=== PATIENT | male | born 1985 | race Asian ===

== ENCOUNTER 2018-06-08 21:09 | Observation (INO) | payer OTHER ==
[2018-06-08] MEDS ORDERED: NS 1,000 ML IV ONE ×2 (21:19→22:05)
[2018-06-08] MEDS ORDERED: ONDANSETRON 4 MG/2 ML VIAL IVP ONE (21:19)
--- NOTE | 2018-06-08 21:31 | EDPHY ---
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 No reported fever, chills, anorexia, vomiting, diarrhea, UTI symptoms, testicular pain or swelling. Patient has a mild leukocytosis of 11. Vital signs stable. CT confirms a dilated appendix to 10 mm with no evidence of rupture or abscess. Patient declined IV analgesics and antiemetics. Case discussed with Dr. Rivera. Patient was kept NPO. He will be taken directly to the operating room from the ER. He was stable upon time of transport. Discussed with Dr. Dunlap DIFFERENTIAL DX: Abdominal pain includes but not limited to acute appendicitis, diverticulitis, cholecystitis, pancreatitis, SBO, gastroenteritis, constipation ED PROCEDURES: See lab and/or imaging results below ED COURSE: 9:20 p.m.:. Patient seen assessed by myself. IV and labs ordered. Patient prefers to wait to see what labs are before pursuing imaging. 10:45 p.m.: Discussed with Dr. Vargas, positive appendicitis on CT scan. Results relayed to the patient. IV Rocephin and Flagyl ordered. Dr. Rivera aware and coming to ED to see patient. NPO since 2:00 p.m.. 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 Patient reports pain was worse yesterday and associated with nausea and anorexia. Today he has been able to have several small meals. He has had normal bowel movements although reports a bilious stool today. No associated vomiting or diarrhea. No reported fever or chills. Today he rates his pain as 2/10, yesterday was 6/10. No prior abdominal surgery. No flank pain. No visualized gross hematuria or history of kidney stones. No testicular pain or swelling. No straining or indication of inguinal hernia. No right upper quadrant abdominal pain or epigastric pain. He is otherwise healthy. No prior abdominal surgery PAST MEDICAL HISTORY: None reported See nurse/triage notes for additional history if applicable Pertinent Past Surgical History: None reported Family History: Noncontributory Social History: Otherwise healthy, works as an manager clinical research in [employer] REVIEW OF SYSTEMS: All other systems negative Constitutional: No fever, no chills, positive for appetite change. Cardiovascular: No chest pain, no palpitations. Respiratory: No cough, no shortness of breath. Gastrointestinal: Positive for abdominal pain, no vomiting, diarrhea. Genitourinary: No hematuria, dysuria, flank pain, pelvic pain Musculoskeletal: No back pain, joint swelling, joint pain, myalgias. Skin: No rashes, color change. PHYSICAL EXAM: General Appearance: Alert, oriented, appropriate, cooperative, NAD, well hydrated, non-toxic appearing, tachycardic, afebrile, no hypoxia. HEENT: Oropharynx clear is no erythema or exudates, no tonsillar hypertrophy or asymmetry. Dentition without abnormality.] Respiratory: There are no retractions, lungs are clear to auscultation. Cardiac: Tachycardic, regular rhythm, no murmurs or gallops. Gastrointestinal: Abdomen is soft, tender to right lower quadrant just above the iliac crest. No rebound tenderness, no right flank pain, no palpable inguinal hernia bowel sounds normal, no masses/hernia, no rigidity, guarding or focal peritoneal findings. Neurological: [ Alert and oriented x 3 Skin: Warm, dry, no rashes, no nodules on palpation. MEDICAL DECISION MAKING: Patient was seen independently. Secondary supervising physician at time of evaluation was Dr. Dunlap. Diagnosis: Acute appendicitis. New, requires workup Summary: See Assessment and Plan for summary of ED visit Clinical lab tests: ordered / reviewed. Independent visualization of images, tracing, or specimens: Yes. Decision to obtain medical records or history from someone other than the patient: No Review / Summarize previous medical records: None available Discussed patient with another provider: Dr. Rivera, Dr. Vargas, Dr. Dunlap Patient Progress: Stable at time of transport OR. - History Smoking Status: Never smoked - Objective Vital Signs: Initial Vital Signs Temperature (C) 36.9 C 06/08/18 21:11 Heart Rate 123 H 06/08/18 21:11 Respiratory Rate 18 06/08/18 21:11 Blood Pressure 115/91 H 06/08/18 21:11 O2 Sat (%) 94 06/08/18 21:11 O2 Delivery Mode Room Air Allergies/Adverse Reactions: No Known Allergies Allergy (Unverified 06/08/18 21:16) Home Medications: Medication Instructions Recorded Hydrocodone/APAP 5/325 [[place] 1 tab PO Q4HRS PRN #7 tab 06/09/18 5/325 (*)] Ibuprofen [Motrin (*)] 600 mg PO Q8HRS #30 tab 06/09/18 Laboratory Results: Laboratory Results 06/08/18 21:30 06/08/18 21:30 Medications Given: Discontinued Medications Bupivacaine HCl (Sensorcaine 0.25% Sdv) Confirm Administered Dose 30 ml .ROUTE .STK-MED ONE Stop: 06/08/18 23:25 Last Admin: 06/09/18 00:50 Dose: 25 ml Sodium Chloride (Ns) 1,000 mls @ 0 mls/hr IV EDNOW ONE; Wide Open PRN Reason: Protocol Stop: 06/08/18 21:20 Last Admin: 06/08/18 21:35 Dose: 1,000 mls Sodium Chloride (Ns) 1,000 mls @ 0 mls/hr IV EDNOW ONE; Wide Open PRN Reason: Protocol Stop: 06/08/18 22:06 Last Admin: 06/08/18 22:12 Dose: Not Given Ceftriaxone Sodium/Dextrose (Rocephin 1 Gm (Premix)) 50 mls @ 100 mls/hr IV EDNOW ONE PRN Reason: Protocol Stop: 06/08/18 23:19 Last Admin: 06/08/18 22:50 Dose: 50 mls Metronidazole/Sodium Chloride (Flagyl 500 Mg (Premix)) 100 mls @ 100 mls/hr IV EDNOW ONE PRN Reason: Protocol Stop: 06/08/18 23:49 Last Admin: 06/08/18 23:04 Dose: 100 mls Lactated Ringer's (Lr) 1,000 mls @ 75 mls/hr IV CONT MADHU Stop: 12/06/18 01:29 Last Admin: 06/09/18 01:47 Dose: 1,000 mls Ibuprofen (Motrin) 600 mg PO Q8HRS MADHU Stop: 12/06/18 05:59 Last Admin: 06/09/18 05:13 Dose: 600 mg Midazolam HCl (Versed) 2 mg IVP ONCALL ONE Stop: 06/08/18 23:55 Last Admin: 06/09/18 00:28 Dose: Not Given Ondansetron HCl (Zofran) 4 mg IVP EDNOW ONE Stop: 06/08/18 21:20 Last Admin: 06/08/18 21:35 Dose: Not Given Departure - Departure Disposition: To OP Cath/Surgery Condition: Good
[2018-06-08 21:46] LABS: PLATELET COUNT 212 10^3/uL (150-400)
[2018-06-08] MEDS ORDERED: IOPAMIDOL (ISOVUE-300) 100 ML BTL ONE (22:20)
[2018-06-08] MEDS ORDERED: BUPIVACAINE 0.25% 30 ML SDV ONE (23:24)
--- NOTE | 2018-06-08 23:44 | PDGENHP ---
History and Physical - Chief Complaint abd pain - History of Present Illness 32 y/o male with one day history of abdominal pain localizing to the RLQ associated with anorexia. He was seen in the ED by Ron Reese PA-C and a CT of the abd performed that showed appendicitis. Surgical consult was requested. 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 [place] Review of Systems Review of Systems: Gastrointestinal: Reports: abdominal pain, diarrhea, nausea, other (anorexia) Physical Exam Physical Exam: Temp Pulse Resp BP Pulse Ox 36.9 C 89 16 138/86 H 98 06/08/18 21:11 06/08/18 23:11 06/08/18 23:11 06/08/18 23:11 06/08/18 23:11 Constitutional: uncomfortable Cardiovascular: regular rate and rhythym Respiratory: clear to auscultation Gastrointestinal: tenderness (RLQ with guarding/Negative Rovsing's), guarding Genitourinary: no bladder fullness Psychiatric: interacting appropriately, not anxious Lymph, Heme, Immunologic: no cervical LAD, no supraclavicular LAD Lab Data & Imaging Review 06/08/18 21:30 06/08/18 21:30 WBC 11.58 10^3/uL (3.80-9.50) H 06/08/18 21:30 RBC 5.55 10^6/uL (4.40-6.38) 06/08/18 21:30 Hgb 17.1 g/dL (13.7-17.5) 06/08/18 21:30 Hct 50.9 % (40.0-51.0) 06/08/18 21:30 MCV 91.7 fL (81.5-99.8) 06/08/18 21:30 MCH 30.8 pg (27.9-34.1) 06/08/18 21:30 MCHC 33.6 g/dL (32.4-36.7) 06/08/18 21: RDW 11.9 % (11.5-15.2) 06/08/18 21: Plt Count 212 10^3/uL (150-400) 06/08/18 21: MPV 9.1 fL (8.7-11.7) 06/08/18: Neut % (Auto) 70.4 % (39.3-74.2) 06/08/18 21: Lymph % (Auto) 20.8 % (15.0-45.0) 06/08/18: [place] % (Auto) 7.7 % (4.5-13.0) 06/08/18: Eos % (Auto) 0.5 % (0.6-7.6) L 06/08/18: Baso % (Auto) 0.3 % (0.3-1.7) 06/08/18: Nucleat RBC Rel Count 0.0 % (0.0-0.2) 06/08/18: Absolute Neuts (auto) 8.16 10^3/uL (1.70-6.50) H 06/08/18 21: Absolute Lymphs (auto) 2.41 10^3/uL (1.00-3.00) 06/08/18: Absolute Monos (auto) 0.89 10^3/uL (0.30-0.80) H 06/08/18: Absolute Eos (auto) 0.06 10^3/uL (0.03-0.40) 06/08/18: Absolute Basos (auto) 0.03 10^3/uL (0.02-0.10) 06/08/18: Absolute Nucleated RBC 0.00 10^3/uL (0-0.01) 06/08/18: Immature Gran % 0.3 % (0.0-1.1) 06/08/18: Immature Gran # 0.03 10^3/uL (0.00-0.10) 06/08/18 21: Sodium 136 mEq/L (135-145) 06/08/18 21:30 Potassium 4.1 mEq/L (3.5-5.2) 06/08/18 21:30 Chloride 100 mEq/L (97-110) 06/08/18 21:30 Carbon Dioxide 24 mEq/l (22-31) 06/08/18 21:30 Anion Gap 12 mEq/L (6-14) 06/08/18 21:30 BUN 17 mg/dL (7-23) 06/08/18 21:30 Creatinine 0.9 mg/dL (0.7-1.3) 06/08/18 21:30 Estimated GFR > 60 06/08/18 21:30 Glucose 116 mg/dL (70-100) H 06/08/18 21:30 Calcium 9.7 mg/dL (8.5-10.4) 06/08/18 21:30 Assessment & Plan Assessment: acute appendicitis confirmed by CT Plan: We discussed management options and I recommended appendectomy. We discussed open vs. laparoscopic appendectomy contrasted with antibiotic therapy and the pros and cons of each. He is scheduled for lap appendectomy. We reviewed the risks and expected recovery. Informed consent was obtained.. He has received one gram of Rocephin and 500 mg of Metronidazole in the ED
--- NOTE | 2018-06-08 23:53 | PDANEPAE ---
ANE History of Present Illness acute appendicitis here lap appy ANE Past Medical History - Cardiovascular History Hx Hypertension: No Hx Arrhythmias: No Hx Chest Pain: No Hx Coronary Artery / Peripheral Vascular Disease: No Hx CHF / Valvular Disease: No - Pulmonary History Hx Oxygen in Use at Home: No - Endocrine History Hx Diabetes: No ANE Review of Systems Review of Systems: - Exercise capacity Exercise capacity: >=4 METS ANE Patient History - Allergies Allergies/Adverse Reactions: No Known Allergies Allergy (Unverified 06/08/18 21:16) - Home Medications Home Medications: NK [No Known Home Meds] 06/08/18 [Last Taken Unknown] - NPO status NPO Status: no food or drink >8 hours NPO Since - Liquids (Date): 06/08/18 NPO Since - Liquids (Time): 15:30 NPO Since - Solids (Date): 06/08/18 NPO Since - Solids (Time): 15:00 - Anes Hx Anes Hx: no prior problems - Smoking Hx Smoking Status: Never smoked - Alcohol Use Alcohol Use: Occasionally - Family Anes Hx Family Anes Hx: none ANE Labs/Vital Signs - Labs Result Diagrams: 06/08/18 21:30 06/08/18 21:30 - Vital Signs Blood Pressure: 125/78 Heart Rate: 83 Respiratory Rate: 16 O2 Sat (%): 97 Height: 185.42 cm Weight: 68.039 kg ANE Physical Exam - Airway Neck exam: FROM Mallampati Score: Class 1 Mouth exam: normal dental/mouth exam - Pulmonary Pulmonary: no respiratory distress, clear to auscultation - Cardiovascular Cardiovascular: regular rate and rhythym, no murmur, rub, or gallop - ASA Status ASA Status: I ANE Anesthesia Plan Anesthesia Plan: general endotracheal anesthesia
[2018-06-08] MEDS ORDERED: MIDAZOLAM 2 MG/2 ML VIAL IVP ONE (23:54)
[2018-06-08] MEDS ORDERED: PROPOFOL 200 MG/20 ML VIAL ONE (23:57)
[2018-06-08] MEDS ORDERED: fentaNYL 100 MCG/2 ML INJ ONE (23:57)
[2018-06-08] MEDS ORDERED: LIDOCAINE 2% 100 MG/5 ML SYR ONE (23:57)
[2018-06-08] MEDS ORDERED: ROCURONIUM 50 MG/5 ML VIAL ONE (23:57)
[2018-06-09] MEDS ORDERED: NALOXONE HCL 0.4 MG/ML INJ IVP PRN (00:34)
[2018-06-09] MEDS ORDERED: PROMETHAZINE HCL 25 MG/ML INJ IVP PRN (00:34)
[2018-06-09] MEDS ORDERED: HYDROmorphONE/DILAUDID 2 MG/ML INJ IVP PRN (00:34)
[2018-06-09] MEDS ORDERED: ONDANSETRON 4 MG/2 ML VIAL IVP PRN ×2 (00:34→01:05)
[2018-06-09] MEDS ORDERED: HYDROCODONE/APAP 5/325 TAB PO PRN ×2 (00:34→01:05)
[2018-06-09] MEDS ORDERED: ACETAMINOPHEN 500 MG TAB PO PRN (00:34)
[2018-06-09] MEDS ORDERED: oxyCODONE IR 5 MG TAB PO PRN (00:34)
[2018-06-09] MEDS ORDERED: fentaNYL 100 MCG/2 ML INJ IVP PRN (00:34)
[2018-06-09] MEDS ORDERED: fentaNYL 100 MCG/2 ML INJ ONE (00:58)
--- NOTE | 2018-06-09 01:04 | POSTANESTH ---
Post Anesthetic Evaluation Cardiovascular Status: Normal, Stable, Similar to Pre-Op Cond Respiratory Status: Normal, Stable, Similar to Pre-op Cond. Level of Consciousness/Mental Status: Can Participate in Eval, Alert and Oriented Pain Control: Adequate, Prn Tx Ordered Nausea/Vomiting Control: Adequate, Prn Tx Ordered Complications Possibly Related to Anesthesia: None Noted
[2018-06-09] MEDS ORDERED: METOCLOPRAMIDE 10 MG/2 ML VIAL IVP PRN (01:05)
[2018-06-09] MEDS ORDERED: HYDROmorphONE/DILAUDID 1 MG/ML INJ IVP PRN (01:05)
--- NOTE | 2018-06-09 01:05 | PDHPUP ---
History & Physical Update H&P update statement: This history and physical update is based on an assessment of the patient which was completed after admission or registration (within 24 hours), but prior to the surgery/procedure. H&P update: H&P reviewed & patient examined, no change in patient's condition since H&P completed
--- NOTE | 2018-06-09 01:16 | POSTOPPROG ---
Post Op Note Date of Operation: 06/09/18 Surgeon: Christian Rivera (, FACS) Anesthesiologist: Rey Robledo MD Anesthesia: GET(General Endotracheal) Pre-op Diagnosis: appendicitis Post-op Diagnosis: same Procedure: dictated #[id number] Findings: acute on chronic appendicitis Inf/Abcess present in the surg proc area at time of surgery?: Yes Depth: Organ Space EBL: Minimal (10ml)
[2018-06-09] MEDS ORDERED: LR 1,000 ML IV SCH (01:30)
--- NOTE | 2018-06-09 01:57 | GOP ---
[f rep st] OPERATIVE REPORT DATE OF OPERATION: 06/09/2018 SURGEON: Christian Rivera MD ANESTHESIA: General endotracheal. ANESTHESIOLOGIST: Rey Robledo MD. PREOPERATIVE DIAGNOSIS: Acute appendicitis. POSTOPERATIVE DIAGNOSIS: Acute appendicitis. PROCEDURE PERFORMED: Laparoscopic appendectomy. FINDINGS: Acute on chronic suppurative appendicitis. No evidence of perforation or gangrene. ESTIMATED BLOOD LOSS: 10 cc or less. DESCRIPTION OF PROCEDURE: After informed consent was obtained, the patient was brought to the operat ing room and placed under general anesthesia. The abdomen was prepped and draped in the usual fashio n. Before proceeding, a time-out and identification of the patient was performed. 0.25% Marcaine was used to infiltrate all incision sites. A longitudinal incision was made through t he base of the umbilicus and carried through the skin and subcutaneous tissues. Ventral traction was applied to the abdominal wall and a Veress needle introduced into the peritoneal cavity. Position w as confirmed by saline infusion and a pneumoperitoneum was established with CO2 gas to a pressure of 15 mmHg. The Veress needle was withdrawn and replaced with a bladeless trocar. A 30 degree scope wa s introduced, and the peritoneal cavity was visualized. An additional 5 mm port was placed in the qureshi prapubic position and a left lower quadrant 12 mm port was established. This allowed introduction of atraumatic grasping forceps, which were used to grasp and manipulate the cecum and appendix came int o view in a partially retrocecal position. The appendix was closely adherent to the wall of the cecu m with evidence of chronic inflammation as well as acute inflammatory change. The mesoappendix was t aken down with a Harmonic Scalpel, and the appendix from the cecum with a single firing of the CHRISSIE stapler near the base of the appendix. The specimen was retrieved with an Endo pouch through the 12 mm port site. The operative field appeared hemostatic. The left lower quadrant port site wa s closed with a transfascial closure needle and 0 Vicryl suture. The remaining ports were removed, a nd the pneumoperitoneum was evacuated. The incisions were closed with 3-0 Vicryl suture for the subc utaneous closure and 4-0 Monocryl suture in a subcuticular fashion for the skin. Topical Dermabond w as applied. Patient was returned extubated to the recovery room in satisfactory condition. Needle, sponge, and instrument counts were correct. COMPLICATIONS: None. /[id number]/MODL
[2018-06-09] MEDS ORDERED: IBUPROFEN 600 MG TAB PO SCH (06:00)
[2018-06-09 07:14] VITALS: BP 101/62
--- NOTE | 2018-06-09 07:37 | PDDCSUM ---
Discharge Summary Discharge Summary: #[id number] Discharge dictated S MD Miguel, FACS
--- NOTE | 2018-06-09 09:29 | ASMTLACE ---
LACE Length of stay for Answers: Less than 1 day current admission Acuity / Level of Answers: No Care: Did the patient have an inpatient admission? # of Emergency department Answers: 1-2 visits in the last 6 months Score: 1 Date Signed: 06/09/2018 09:28 AM Electronically Signed By:Niesha Flores RN
--- NOTE | 2018-06-09 09:31 | ASMTBHDC ---
Notes Note: Notes: Chart reviewed. 32 year old male s/p admission via ED found to have appendicitis. Medically cleared post appendectomy to discharge to home. No needs. CM available should needs arise. Date Signed: 06/09/2018 09:30 AM Electronically Signed By:Niesha Flores RN
--- NOTE | 2018-06-09 12:54 | GDS ---
[f rep st] DISCHARGE SUMMARY DISCHARGE DIAGNOSIS: Acute appendicitis. PROCEDURE PERFORMED: 06/09/2018, shortly after midnight, laparoscopic appendectomy. HOSPITAL COURSE: For details of admission history and physical, please see dictated summary. Briefl y, the patient is a 32-year-old male who presented with a 1-day history of abdominal pain localized i n the right lower quadrant associated with anorexia. He was found to have mild leukocytosis. CT scan showed a dilated appendix. Surgical consultation was requested and patient had clinical find ings consistent with acute appendicitis. He was brought to the operating room for laparoscopic appen dectomy after receiving 1 g of Rocephin and 500 mg of metronidazole. He was found to have acute on c hronic appendicitis, but without perforation or gangrene. His postoperative course was unremarkable. The following morning, he felt improved, had mild incisional pain that was managed with ibuprofen a nd Tylenol. He was advanced in his diet and discharged home to follow up in my office in the next 1- 2 weeks. We discussed diet, activity, and wound care prior to discharge. DISCHARGE MEDICATIONS: Ibuprofen 600 mg p.o. q.6 hours p.r.n. pain, Tylenol 1000 mg p.o. q.8 hours p .r.n. pain, and hydrocodone 5/325 one p.o. q.4 hours p.r.n. severe pain, which the patient indicates he will not likely use and has not used since surgery. Condition at time of discharge improved. /[id number]/MODL
== END 2018-06-09 10:49 | disposition home or self-care (01) ==
LOC: F1N 06-09 01:37
PROVIDERS: ADMIT Surgery; ATTEND Surgery
PROC: 0DTJ4ZZ Resection of Appendix, Percutaneous Endoscopic Approach (ICD-10-PCS; principal; 2018-06-08)
DX: K35.80 Unspecified acute appendicitis (principal); E86.0 Dehydration
CPT/HCPCS: 44970; 74177; G0378; 96365; J0696; J2001; J2405; J2704; J3010; Q9967